=== PATIENT | male | born 1990 | race Two or more races ===

== ENCOUNTER 2016-11-08 11:45 | Emergency (ER) | payer MEDICAID ==
[~2016-11-08] VITALS: Ht 170.2 cm; Wt 102.1 kg
[2016-11-08 12:06] VITALS: BP 134/96
[2016-11-08] MEDS ORDERED: methylPREDNISolone SOD SUCC 125 MG/2 ML VL IM ONE (14:30)
[2016-11-08] MEDS ORDERED: KETOROLAC TROMETH 60MG/2ML VIAL IM ONE (14:30)
[2016-11-08] MEDS ORDERED: cefTRIAXone SOD 1,000 MG VL IM ONE (14:30)
== END 2016-11-08 15:40 | disposition home or self-care (01) ==
LOC: ER 11:45
DX: J01.90 Acute sinusitis, unspecified (principal); J03.90 Acute tonsillitis, unspecified; H66.92 Otitis media, unspecified, left ear; R51 Headache
CPT/HCPCS: 96372; 99284; J0696; J1885; J2930